=== PATIENT | male | born 1970 | race Caucasian/White ===

== ENCOUNTER 2018-01-28 05:24 | Emergency (ER) | payer SELFPAY ==
[2018-01-28 06:10] VITALS: BMI 29.7
--- NOTE | 2018-01-28 07:02 | PDOC ---
History of Present Illness - General Chief Complaint: Pain, Acute Stated Complaint: LEFT SIDE PAIN Time Seen by Provider: 01/28/18 07:02 - History of Present Illness Initial Comments: 01/28/18 07:22 Mr. Lal is a 47 yo male w/ no pmh who presents for evaluation of left abdomen / left back pain. He had initially been seen on Monday and diagnosed with a muscle strain, but reports that the pain has remained constant despite being given medication and resting. He reports the pain initially started on Monday ( 5 days ago) and goes from his left upper quadrant to his left back. He describes it as sharp and tearing intermittent pain. Mr. Lal also reports he has had intermittent nausea and has been unable to eat for the last 3 days with the pain. He has not had a BM since monday and attributes this to not eating. The patient denies chest pain, shortness of breath, headache and dizziness. Denies fever, chills, vomit, diarrhea and constipation. Denies dysuria, frequency, urgency and hematuria. Allergies: NKDA Past History - Past Medical History Allergies/Adverse Reactions: Allergies Allergy/AdvReac Type Severity Reaction Status Date / Time No Known Allergies Allergy Verified 01/28/18 06:07 Home Medications: Ambulatory Orders Acetaminophen [Tylenol] 650 mg PO QID PRN #28 tablet 01/27/18 Ciprofloxacin HCl [Cipro] 500 mg PO BID #14 tablet 01/28/18 Tramadol HCl 50 mg PO BID #6 tablet MDD 2 01/28/18 metroNIDAZOLE [Flagyl -] 500 mg PO TID #21 tablet 01/28/18 COPD: No Other medical history: Pt denies - Immunization History Immunization Up to Date: Yes - Suicide/Smoking/Psychosocial Hx Smoking History: Never smoked Have you smoked in the past 12 months: No If you are a former smoker, when did you quit?: 10 YEARS AGO Information on smoking cessation initiated: No Hx Alcohol Use: No Drug/Substance Use Hx: No Substance Use Type: None Review of Systems - Review of Systems Comments:: 01/28/18 07:43 GENERAL/CONSTITUTIONAL: No fever or chills. No weakness. HEAD, EYES, EARS, NOSE AND THROAT: No change in vision. No ear pain or discharge. No sore throat. CARDIOVASCULAR: No chest pain or shortness of breath RESPIRATORY: No cough, wheezing, or hemoptysis. GASTROINTESTINAL: +Abdominal pain in the LUQ that he reports radiates to his left back. Reported 10/10. Minimal nausea intermittently. Novomiting. No diarrhea or constipation. GENITOURINARY: No dysuria, frequency, or change in urination. MUSCULOSKELETAL: No joint or muscle swelling or pain. No neck or back pain. SKIN: No rash NEUROLOGIC: No headache, vertigo, loss of consciousness, or change in strength/ sensation. ENDOCRINE: No increased thirst. No abnormal weight change HEMATOLOGIC/LYMPHATIC: No anemia, easy bleeding, or history of blood clots. ALLERGIC/IMMUNOLOGIC: No hives or skin allergy. *Physical Exam - Vital Signs Last Vital Signs Temp Pulse Resp BP Pulse Ox 97.8 F 63 18 135/89 99 01/28/18 06:08 01/28/18 06:08 01/28/18 06:08 01/28/18 06:08 01/28/18 06:08 - Physical Exam Comments: 01/28/18 07:43 GENERAL: Awake, alert, and fully oriented, in no acute distress HEAD: No signs of trauma, normocephalic, atraumatic EYES: PERRLA, EOMI, sclera anicteric, conjunctiva clear ENT: Auricles normal inspection, hearing grossly normal, nares patent, oropharynx clear without exudates. Moist mucosa NECK: Normal ROM, supple, no lymphadenopathy, JVD, or masses LUNGS: No distress, speaks full sentences, clear to auscultation bilaterally HEART: Regular rate and rhythm, normal S1 and S2, no murmurs, rubs or gallops, peripheral pulses normal and equal bilaterally. ABDOMEN: Soft, nontender, normoactive bowel sounds. No guarding, no rebound. No masses EXTREMITIES: Normal inspection, Normal range of motion, no edema. No clubbing or cyanosis. NEUROLOGICAL: Cranial nerves II through XII grossly intact. Normal speech, normal gait, no focal sensorimotor deficits SKIN: Warm, Dry, normal turgor, no rashes or lesions noted. ED Treatment Course - LABORATORY CBC & Chemistry Diagram: 01/28/18 07:27 01/28/18 07:34 Medical Decision Making - Medical Decision Making 01/28/18 07:47 Mr. Lal is a 47 yo male w/ HLD who presents for evaluation of abdominal and back pain. Given patient's representation and description as tearing and stabbing pain; CTA ordered to r/o aortic dissection. CBC/CMP/Cardiac profile/ EKG sent as well for evaluation of left sided pain. 01/28/18 10:52 labs grossly wnl as below. CTA negative for dissection. Cardiac enzymes negative. EKG normal rate, normal rhythm, normal access. Intervals significant for RI elongation. No ST elevations or depressions. 1st degree AV block. No concerning findings. CT significant for possible colitis. This plus clinical exam leads to colitis as likely etiology of patient's symptoms. ABX sent to pt' s pharmacy and started in ER. Pain control given as well. Patient will follow- up with PCP for further evaluation later this week. Patient verbalized understanding and agreement with plan and will comply. Laboratory Results - last 24 hr 01/28/18 01/28/18 07:27 07:34 WBC 5.7 RBC 5.17 Hgb 16.4 Hct 46.2 MCV 89.3 MCH 31.6 MCHC 35.4 RDW 13.8 Plt Count 189 MPV 8.2 Neutrophils % 59.0 Lymphocytes % 32.6 Monocytes % 7.3 Eosinophils % 0.7 Basophils % 0.4 Sodium 138 Potassium 4.2 Chloride 101 Carbon Dioxide 28 Anion Gap 9 BUN 10 D Creatinine 0.9 Creat Clearance w eGFR > 60 Random Glucose 110 H D Calcium 9.2 Total Bilirubin 0.5 AST 58 H ALT 136 H Alkaline Phosphatase 130 H Creatine Kinase 118 Troponin I < 0.02 Total Protein 8.5 H Albumin 4.0 Lipase 170 01/28/18 11:02 *DC/Admit/Observation/Transfer Diagnosis at time of Disposition: Colitis - Discharge Dispostion Disposition: HOME - Prescriptions Prescriptions: Ciprofloxacin HCl [Cipro] 500 mg PO BID #14 tablet metroNIDAZOLE [Flagyl -] 500 mg PO TID #21 tablet Tramadol HCl 50 mg PO BID #6 tablet MDD 2 - Referrals - Patient Instructions Printed Discharge Instructions: DI for Colitis Additional Instructions: Please take antibiotics as written for your colitis. A prescription for tramadol has been sent to your pharmacy as well for pain control. Follow-up with primary care provider in 1-2 days for further evaluation. Please return if any increase in pain, fever, chills, or other concerning symptoms. - Post Discharge Activity
[2018-01-28] MEDS ORDERED: ONDANSETRON 4 MG/2 ML VIAL IVPB ONE (07:21)
[2018-01-28] MEDS ORDERED: morphine CARPU-JECT 4 MG/1 ML DISP.SYRIN IVPUSH ONE (07:21)
[2018-01-28] MEDS ORDERED: ACETAMINOPHEN 500 MG TABLET (FP) PO ONE (07:21)
[2018-01-28] MEDS ORDERED: morphine SULFATE 4 MG/ML VIAL ONE (07:41)
[2018-01-28] MEDS ORDERED: ONDANSETRON 4 MG/2 ML VIAL ONE (07:41)
[2018-01-28 08:07] LABS: ALK PHOS 130 U/L (45-117); ANION GAP 9 (8-16); BILIRUBIN,TOTAL 0.5 mg/dL (0.2-1.0); BLOOD UREA NITROGEN 10 mg/dL (7-18); CALCIUM 9.2 mg/dL (8.5-10.1); CHLORIDE 101 mmol/L (98-107); CO2 28 mmol/L (21-32); CREATININE 0.9 mg/dL (0.7-1.3); GLUCOSE,RANDOM 110 mg/dL (74-106); LIPASE 170 U/L (73-393); SODIUM 138 mmol/L (136-145); TOT PROT 8.5 g/dl (6.4-8.2)
[2018-01-28] MEDS ORDERED: FAMOTIDINE IV 20 MG/12 ML VIAL IVPB ONE (08:17)
[2018-01-28] MEDS ORDERED: SODIUM CHLORIDE 1,000 ML IV STA ×2 (08:17→10:26)
[2018-01-28] MEDS ORDERED: MAG HYDROX/AL HYDROX/SIMETH 30 ML UNIT-DOSE CUP PO ONE (08:18)
--- NOTE | 2018-01-28 08:20 | PDOC ---
Attending Attestation - HPI HPI: 01/28/18 08:21 Patient is a 47 M, with PMHx of HLD, who presents today with back pain for 6 days. Patient was seen 2 days ago for the same back pain and diagnosed with muscle strain. He describes his pain as constant, intermittent, does not radiate , not improved or worse with movement. Denies any recent fevers, chills, headache or dizziness. He denies any recent nausea, vomit, diarrhea or constipation. He denies any recent chest pain or shortness of breath. He denies any recent dysuria, frequency, urgency or hematuria. Social Hx: Denies EtoH, cigarette, or any illicit drug use. - Physicial Exam PE: 01/28/18 08:21 Vitals: Triage Vital signs reviewed General Appearance: no acute distress, well nourished well developed Head: Atraumatic, normocephalic Chest Wall: Nontender Cardiac: Regular rate and rhythm, no murmurs, no rubs, no gallops, Lungs: Clear to auscultation bilateral, good air movement bilaterally, Abdomen: Soft, nondistended, normal bowel sounds, nontender to palpation Back: left CVA tenderness Extremities: Full range of motion to all extremities, no cyanosis, clubbing, or edema Skin: Warm and dry, no rashes or lesions, no petechiae <Soha Moncada - Last Filed: 01/28/18 08:21> - Resident Resident Name: Damien Chicas - ED Attending Attestation I have performed the following: I have examined & evaluated the patient, The case was reviewed & discussed with the resident, I agree w/resident's findings & plan, Exceptions are as noted - Medical Decision Making 01/28/18 10:20 47 years old no significant past medical history presents to the emergency department with persistent constant left sided abdominal discomfort radiating to his back we didn't EKG Nonischemic EKG troponin negative given severe radiation of pain to visits to the emergency department a CTA was ordered His CTA is suspicious for colitis no dissection was noted We'll treat with Cipro Flagyl he will follow-up with his doctor this week Findings, the need for follow-up and strict return instructions discussed with patient. <Spike Baxter - Last Filed: 01/28/18 14:12> Heart Score/ECG Review - ECG Impressions Comment:: 01/28/18 14:12 EKG performed at 9:48 AM. Demonstrates sinus rhythm at [address] elevations or T-wave inversions first- degree AV block Interpreted by me <Spike Baxter - Last Filed: 01/28/18 14:12>
[2018-01-28 08:24] LABS: POTASSIUM 4.2 mmol/L (3.5-5.1); SGOT/AST 58 U/L (15-37); SGPT/ALT 136 U/L (12-78)
[2018-01-28] MEDS ORDERED: MAG HYDROX/AL HYDROX/SIMETH 30 ML UNIT-DOSE CUP ONE (08:28)
[2018-01-28] MEDS ORDERED: FAMOTIDINE 20 MG/50 ML IVPB 20 MG/50 ML MG IVPB ONE (08:28)
[2018-01-28 09:35] LABS: BASO % 0.4 % (0-2.0); EOS % 0.7 % (0-4.5); HEMATOCRIT 46.2 % (35.4-49); HEMOGLOBIN 16.4 GM/dL (11.7-16.9); LYMPH % 32.6 % (8-40); MCH 31.6 pg (25.7-33.7); MCHC 35.4 g/dl (32.0-35.9); MEAN CELL VOLUME 89.3 fl (80-96); MEAN PLT VOLUME 8.2 fl (7.5-11.1); MONO % 7.3 % (3.8-10.2); PLATELET COUNT 189 K/MM3 (134-434); RBC 5.17 M/mm3 (4.00-5.60); RDW 13.8 % (11.9-15.9); WHITE BLOOD COUNT 5.7 K/mm3 (4.0-10.0)
[2018-01-28] MEDS ORDERED: metroNIDAZOLE 250 MG TABLET PO ONE (10:21)
[2018-01-28] MEDS ORDERED: CIPROFLOXACIN 500 MG TABLET (RESTRICTED TO ID) PO ONE (10:21)
[2018-01-28] MEDS ORDERED: KETOROLAC TROMETHAMINE 30 MG/1 ML VIAL IVPUSH ONE (10:26)
[2018-01-28 10:30] VITALS: PULSE 79
[2018-01-28] MEDS ORDERED: metroNIDAZOLE 250 MG TABLET ONE (10:33)
[2018-01-28] MEDS ORDERED: KETOROLAC TROMETHAMINE 30 MG/1 ML VIAL ONE (11:01)
[2018-01-28 11:40] VITALS: BP 115/71; TEMP 98.1
--- NOTE | 2018-01-28 19:52 | EKG ---
Test Reason : Blood Pressure : / mmHG Vent. Rate : 066 BPM Atrial Rate : 066 BPM P-R Int : 242 ms QRS Dur : 084 ms QT Int : 424 ms P-R-T Axes : 062 071 068 degrees QTc Int : 444 ms SINUS RHYTHM WITH SINUS ARRHYTHMIA WITH 1ST DEGREE A-V BLOCK OTHERWISE NORMAL ECG NO PREVIOUS ECGS AVAILABLE Confirmed by MIRIAN CRUZ MD ([id number]) on 01/28/2018 7:52:46 PM Referred By: Confirmed By:MIRIAN CRUZ MD
== END 2018-01-28 11:39 | disposition home or self-care (01) ==
LOC: JER 05:24
PROC: 3E0337Z Introduction of Electrolytic and Water Balance Substance into Peripheral Vein, Percutaneous Approach (ICD-10-PCS; principal; 2018-01-28)
PROC: 3E033NZ Introduction of Analgesics, Hypnotics, Sedatives into Peripheral Vein, Percutaneous Approach (ICD-10-PCS; 2018-01-28)
PROC: 3E0333Z Introduction of Anti-inflammatory into Peripheral Vein, Percutaneous Approach (ICD-10-PCS; 2018-01-28)
PROC: 3E033GC Introduction of Other Therapeutic Substance into Peripheral Vein, Percutaneous Approach (ICD-10-PCS; 2018-01-28)
PROC: 3E033GC Introduction of Other Therapeutic Substance into Peripheral Vein, Percutaneous Approach (ICD-10-PCS; 2018-01-28)
DX: K52.9 Noninfective gastroenteritis and colitis, unspecified (principal)
CPT/HCPCS: 36415; 71275-TC; 74174-TC; 80053; 82550; 83690; 84484; 85025; 93005; 93010; 99285-25; J7030